=== PATIENT | male | born 1995 | race Caucasian/White ===

== ENCOUNTER → 2016-12-14 | Outpatient (CLI) | payer OTHER ==
[~2016-12-14] MED LIST: ONDA-50 PO; TBR.3OP51 OS
[2016-12-14 16:12] VITALS: BP 135/83
--- NOTE | 2016-12-14 16:12 | Urgent Care T Sheet Gen (E) ---
Intake General Temperature (Fahrenheit): 98.9 Pulse: 61 Blood Pressure Systolic: 135 Blood Pressure Diastolic: 83 Respirations: 18 SPO2: 98 Description of Symptoms Patient presents with a red, gritty, sensitive L eye. First noticed last night. Took his contact out however symptoms persisted. No symptoms in R eye. No cough or congestion. No fever. No meds to treat his symptoms. Patient is scheduled for a golf tourney this weekend and wanted to be seen before he left. History of Present Illness Home Meds Active Scripts Tobramycin Sulf (Tobrex 0.3% Ophthalmic Solution)5 Ml Soln2 Drops OS QID #1 BTL 2 drops in L eye QID x 5 days Prov:JARRETT PHILLIP 12/14/16 Ondansetron HCl 4 Mg Tablet4 Mg PO QID PRN NAUSEA #12 TAB Prov:JARRETT PHILLIP 11/30/15 Respiratory Constitutional Symptoms: No syptoms reported EENTM: Eye pain Blurred vision Eye tearing Respiratory: No symptoms reported Cardiovascular: No symptoms reported Gastrointestinal/Abdominal: No symptoms reported All Other Systems Reviewed Remaining Systems: All other systems reviewed with negative findings Physical Exam Physical Exam General Appearance: WD/WN No apparent distress Eyes, Ears, Nose, Throat Ex: PERRL/EOMI (L conjunctiva is red. some mattering is noted. sensitive to light.) TMs normal Pharynx normal Neck Exam: SuppleNo Lymphadenopathy Respiratory Exam: Lungs clear Normal breath sounds Cardiovascular Exam: Regular rate, rhythm Departure Urgent Care Impression Impression: Primary Impression: Conjunctivitis Qualified Code: H10.32 - Unspecified acute conjunctivitis, left eye Departure Disposition: HOME OR SELF-CARE Condition: Stable Additional Instructions: I have started the patient on Tobramycin ophth drops for treatment. If symptoms develop in R eye, may use drops there. Avoid wearing contacts until symptoms resolve Warm compress to the eye. Avoid touching to prevent spreading Return as needed Patient understands DC instructions. All questions were answered. Scripts Tobramycin Sulf (Tobrex 0.3% Ophthalmic Solution)5 Ml Soln2 Drops OS QID #1 BTL 2 drops in L eye QID x 5 days Prov:JARRETT PHILLIP 12/14/16 End of report . JARRETT PHILLIP Dec 14, 2016 16:03
== END ==
LOC: MHUC 15:40
PROVIDERS: ATTEND Physician Assistant
DX: H10.32 Unspecified acute conjunctivitis, left eye (principal)
CPT/HCPCS: 99213